=== PATIENT | female | born 1995 | race Caucasian/White ===

== ENCOUNTER 2018-04-09 15:50 | Emergency (ER) | payer MEDICAID, SELFPAY ==
[2018-04-09 15:50] VITALS: BP 155/89; PULSE 128; RESP 22; TEMP 35.7; BMI 28.4
[2018-04-09 16:01] VITALS: PULSE 110; RESP 16; O2SAT 98
--- NOTE | 2018-04-09 16:13 | ED.VISSUMM ---
- ER Visit Summary Date of Service: 04/09/18 Chief Complaint: Right ankle injury History of Present Illness: The patient is a 22 F who twisted her right ankle after she fell in a ditch last night. She admits to quite a bit of alcohol. She denies any head injury, no neck pain. She has no other pain or injury other than her right ankle. Physical Examination: Patient has no C-spine tenderness, she is equal pupils, she has no chest or abdominal pain to palpation she has a stable pelvis. She has no knee pain She has tenderness over the medial and lateral parts of the right ankle. No proximal fifth metatarsal tenderness or any foot pain. No proximal fibular pain. Emergency Department Course and Treatment: X-ray of the ankle is negative, patient is reassured, she will be placed in an Aircast, she has her own crutches she will be discharged in stable condition. Received analgesia in the emergency department. Disposition: Discharge stable condition Impression: [Right ankle sprain] This note was generated with [employer] dictation software. It may contain incorrect words, spelling, and punctuation that were not noted in review of the chart prior to signing ED Disposition - Plan for ED Patient: Disposition: Home or Assisted Living Chief Complaint: Lower Extremity Injury Instructions: ED Sprain Ankle W X Ray Prescriptions: Naproxen [Naprosyn] 500 mg PO BID PRN #20 tab Referrals: Vijay Lehman [Primary Care Provider] - 3-5 Days
--- NOTE | 2018-04-09 16:33 | ED.DEP ---
ED Disposition - Plan for ED Patient: Disposition: Home or Assisted Living Chief Complaint: Lower Extremity Injury Instructions: ED Sprain Ankle W X Ray Prescriptions: Naproxen [Naprosyn] 500 mg PO BID PRN #20 tab Referrals: Vijay Lehman [Primary Care Provider] - 3-5 Days
[2018-04-09] MEDS: HYDROcodone Bitartrate/Apap 5/325 Tablet PO (16:41)
[2018-04-09 16:47] VITALS: RESP 16
--- NOTE | 2018-04-09 16:47 | ED.RN ---
REVIEWED D/C INSTRUCTIONS, FOLLOW UP CARE, PRESCRIPTION, AND S/S THAT WOULD WARRANT A RETURN TO THE ED WITH PT. PT VERBALIZED AN UNDERSTANDING AND DENIES FURTHER QUESTIONS FOR THIS RN. PT SKIN P/W/D, RESP EVEN AND UNLABORED, PT A&O X 3, NO DISTRESS NOTED. PT AMBULATED OUT OF ED, GAIT STEADY.
== END 2018-04-09 16:48 | disposition home or self-care (01) ==
LOC: ED 16:41
PROVIDERS: Emergency Provider Emergency Medicine; Family Provider Pediatrics; PCP Pediatrics
DX: S93.401A Sprain of unspecified ligament of right ankle, initial encounter (principal); W17.89XA Other fall from one level to another, initial encounter; Y93.9 Activity, unspecified; Y92.9 Unspecified place or not applicable; Z72.0 Tobacco use
CPT/HCPCS: 73610; 99283

== ENCOUNTER 2020-01-12 20:22 | Emergency (ER) | payer MEDICAID, SELFPAY ==
[2020-01-12 20:23] VITALS: BP 155/88; PULSE 110; RESP 18; TEMP 35.6; O2SAT 100; BMI 28.5
--- NOTE | 2020-01-12 20:41 | ED.VISSUMM ---
- ER Visit Summary Date of Service: 01/12/20 Chief Complaint: Vaginal spotting reportedly 5 weeks History of Present Illness: The patient is a 24 F no significant past medical history. Patient believes she is about 5 weeks . G1, P0 Ab0. Last menstrual period was December 09, 2019. States she is never been before. Denies any pain. States around 7 AM this morning she noticed very mild spotting. No pain. No cramping. No dysuria. No fever. States she has not been ill. She had a virtual visit with an [facility] in [facility] but does not have a schedule appointment till February 06. She is had no ultrasound or any testing other than a home positive test. Physical Examination: Young female no acute distress accompanied by a male friend. Vital signs are stable and afebrile. H EENT exam unremarkable. Neck nontender. Lungs clear to auscultation bilaterally. Heart regular rhythm no murmur. Abdomen soft nontender normal bowel sounds no peritoneal signs. Absolutely no abdominal or suprapubic abdominal pelvic tenderness. Moving all 4 extremities. Neurologically awake alert no focal motor deficits. Exam done female nurse present in room. External exam normal. Speculum exam no blood, no discharge or lesions. Bimanual exam completely nontender. Test Results: Quantitative hCG shows a quant of 4739. ABO Rh shows blood type of A+. Emergency Department Course and Treatment: Patient reportedly for the first time and spotting. Obtain a quant and blood type. The quant will determine if she gets an ultrasound tonight. She is having no pain and has no reproducible pain. Due to the patient's quant a pelvic ultrasound has been ordered. It will be checked out to the overnight physician. Clinically at this time she is a threatened AB. Clinically I do not think it is an ectopic but obviously that is a consideration another reason the ultrasound was done. Treatment Plan: Follow-up with your [employer]. Return if worse. Disposition: Discharge Impression: Vaginal spotting First trimester Threatened miscarriage This note was generated with [employer] software. It may contain incorrect words, spelling, and punctuation that were not noted in review of the chart prior to signing ED Disposition - Plan for ED Patient: Disposition: Home or Assisted Living Instructions: ED Possible Miscarriage Threatened Referrals: NOT,DEFINED [NON-STAFF] - As soon as possible Additional Instructions: Call and follow-up with your GR[employer] this coming week.
[2020-01-12 21:44] LABS: hCG Titer Quant., Serum 4739 mIU/mL (1-3)
--- NOTE | 2020-01-12 22:28 | US_ITS ---
STUDY: FIRST TRIMESTER OBSTETRICAL ULTRASOUND REASON FOR EXAM: Female, 24 years old light spotting. LMP: 12/09/2019. Gestational age 4 weeks 6 days, PEDRO LUIS 09/14/2020 based on LMP. TECHNIQUE: Transvaginal PRIOR ULTRASOUND: None. FINDINGS: Gestational sac in the fundal endometrium. Mean sac diameter 0.68 cm gives gestational age 5 weeks 2 days, PEDRO LUIS 09/11/2020. No pole or cardiac activity or placenta is yet visible. A normal yolk sac measures 0.14 cm diameter. No apparent hemorrhage. Cervix closed, contains a 1 cm diameter nabothian cyst. Uterus 7.4 x 4.7 x 4.1 cm with no apparent fibroids. Right ovary 2.1 x 1.5 x 1.0 cm. Left ovary 4.0 x 3.9 x 3.3 cm. Physiologic 2.7 cm diameter corpus luteal cyst left ovary. Both ovaries have normal Doppler flow. No suspicious adnexal mass or abnormal fluid in the pelvis. US/Transvaginal w/Preg US IMPRESSION: Single intrauterine . The pole and cardiac activity are not yet visible although this is normal due to early gestational age. Electronically Signed: Jovanni Dunn, at 0:00 EDT Tel , Service support ,
--- NOTE | 2020-01-12 22:45 | ED.DEP ---
ED Disposition - Plan for ED Patient: Disposition: Home or Assisted Living Instructions: ED Possible Miscarriage Threatened Referrals: NOT,DEFINED [NON-STAFF] - As soon as possible Additional Instructions: Call and follow-up with your CAREER TRANSITION SPECIALIST this coming week.
== END 2020-01-13 00:36 | disposition home or self-care (01) ==
PROVIDERS: Emergency Provider Emergency Medicine
DX: O20.0 Threatened abortion (principal); Z3A.01 Less than 8 weeks gestation of pregnancy; Z72.0 Tobacco use
CPT/HCPCS: 76817; 84702; 86900; 86901; 99283; A4216

== ENCOUNTER 2020-03-11 11:43 | Emergency (ER) | payer MEDICAID, SELFPAY ==
[2020-03-11 11:44] VITALS: BP 132/78; PULSE 101; RESP 18; TEMP 36.6; O2SAT 97; BMI 27.2
--- NOTE | 2020-03-11 12:21 | ED.VIS.GEN ---
History of Present Illness Chief Complaint: Cold Sx Informant: Patient Narrative: Patient presents the emergency department with a chief complaint of rhinorrhea cough shortness of breath. She states that several family members are awaiting their test for COVID. She states that she is 13 weeks . She has a history of asthma. No fevers diarrhea or sore throat. She denies any new rashes. She has a history of asthma and currently does not have any asthma therapy. Past Medical History - Allergies and Home Meds Allergies/Adverse Reactions: Allergies latex Allergy (Verified 03/11/20 11:46) Rash Primary Care Physician: Latha Camargo MD [STAFF PHYSICIAN] - Smoking Status: Current every day smoker Review of Systems General: Reports: Malaise. Denies: Chills, Fever, Sweats Eyes: Denies: Visual changes - bilaterally, Diplopia ENT: Reports: Rhinorrhea. Denies: Sore throat Cardiovascular: Denies: Chest pain, Palpitations Respiratory: Reports: Dyspnea, Cough. Denies: Dyspnea on exertion Gastrointestinal: Denies: Abdominal pain, Nausea, Vomiting, Diarrhea, Melena, Hematochezia Genitourinary: Denies: Dysuria, Hematuria, Frequency Musculoskeletal: Denies: Back pain, Extremity Pain Skin: Denies: Rash, Wounds Neurological: Denies: Headache, Weakness, Numbness Physical Exam Vital Signs/Narrative: Vital Signs Temp Pulse Resp BP Pulse Ox 03/11/20 11:44 98 F 101 H 18 132/78 H 97 Inital Vital Signs reviewed: Yes General: Well nourished, Well developed, No Acute Distress Head: Normocephalic, Atraumatic Eyes: Perrl, EOMI ENT: Moist mucous membranes, Nasal congestion Neck: Supple, Nontender Cardiovascular: Regular rate, Regular rhythm, No murmurs Respiratory: No distress, Chest nontender, Wheezing - Expiratory wheeze bilaterally Abdomen: Soft, Nontender, Nondistended, Normal bowel sounds Back: Nontender, Normal Inspection Extremities: Nontender, No edema Skin: Normal color, No rash Neurological: Alert, Oriented x3, Cranial nerves II-XII grossly intact, Normal Strength, Normal Sensation Psychological: Normal affect, Normal Mood Diagnostic/Tx/Re-eval - Medical Decision Making COVID-19 test will be sent. Patient will be started on albuterol and prednisone. I suspect she has a viral URI that has resulted in flare of her asthma. ED Disposition - Plan for ED Patient: Disposition: Home or Assisted Living Diagnosis: URI (upper respiratory infection), Asthma exacerbation Instructions: ED Bronchitis Asthmatic Prescriptions: Prednisone [Deltasone] 60 mg PO DAILY #15 tab Prescription Printed Albuterol Inhaler [Ventolin Hfa] 2 puff INHALATION Q4H PRN PRN #1 inhaler PRN Reason: Wheezing Prescription Printed Referrals: Latha Camargo MD [STAFF PHYSICIAN] -
== END 2020-03-11 12:37 | disposition home or self-care (01) ==
PROVIDERS: Emergency Provider Emergency Medicine; PCP Family Medicine
DX: O99.511 Diseases of the respiratory system complicating pregnancy, first trimester (principal); J06.9 Acute upper respiratory infection, unspecified; J45.901 Unspecified asthma with (acute) exacerbation; O99.331 Smoking (tobacco) complicating pregnancy, first trimester; F17.200 Nicotine dependence, unspecified, uncomplicated; Z3A.13 13 weeks gestation of pregnancy; Z91.040 Latex allergy status
CPT/HCPCS: 87635; 94799; 99282; U0003

== ENCOUNTER → 2020-05-07 18:00 | Emergency (ER) | payer MEDICAID, SELFPAY ==
[2020-05-07 18:01] VITALS: BP 118/69; PULSE 109; RESP 18; TEMP 36.3; O2SAT 97; BMI 27.6
--- NOTE | 2020-05-07 18:48 | ED.RN ---
PT LEFT WITHOUT BEING SEEN. TRIAGE NURSE NOTIFIED
== END ==
DX: R05 Cough (principal)